=== PATIENT | female | born 1965 | race Caucasian/White ===

== ENCOUNTER → 2017-04-19 | Outpatient (CLI) | payer OTHER ==
[~2017-04-19] MED LIST: ACET325 PO; CHLO25 PO; CYAN500 PO; Calcium 600 +1 EAC1 PO; Crutch1 EACH MISC; DOCU100 PO; Desyrel50 MG; FOLI1 PO; K-Dur20 MEQ PO; METO100ER PO; METO50 PO; MIRT30 PO; Naprosyn500 MG PO; Norco 5-325 Ta1 EACH PO; OXYC5 PO; Prilosec20 MG PO; THIA100 PO; TOLT4 PO; VITAMIN C500 MG PO; VITAMIN D350000 UNIT PO
[2017-04-21 15:57] LABS: HPV Genotype 16 Not Detected (NOTDET); HPV Genotype 18 Not Detected (NOTDET)
[2017-04-27 09:29] LABS: HPV High Risk Other Not Detected (NOTDET)
== END | disposition home or self-care (01) ==
LOC: LAB 17:32
PROVIDERS: Obstetrics & Gynecology
DX: Z01.419 Encounter for gynecological examination (general) (routine) without abnormal findings (principal)
CPT/HCPCS: 87624; G0123

== ENCOUNTER 2017-07-04 08:40 | Day surgery (SDC) | payer OTHER ==
[~2017-07-04] VITALS: Ht 160 cm; Wt 55.0 kg
== END 2017-07-04 11:10 | disposition home or self-care (01) ==
LOC: ORSCSDS 08:40
PROVIDERS: Internal Medicine Gastroenterology
PROC: 0DBN8ZX Excision of Sigmoid Colon, Via Natural or Artificial Opening Endoscopic, Diagnostic (ICD-10-PCS; principal; 2017-07-04 10:00)
PROC: 0DBH8ZX Excision of Cecum, Via Natural or Artificial Opening Endoscopic, Diagnostic (ICD-10-PCS; principal; 2017-07-04 10:00)
PROC: 0DBK8ZX Excision of Ascending Colon, Via Natural or Artificial Opening Endoscopic, Diagnostic (ICD-10-PCS; principal; 2017-07-04 10:00)
DX: Z12.11 Encounter for screening for malignant neoplasm of colon (principal); D12.0 Benign neoplasm of cecum; D12.2 Benign neoplasm of ascending colon; K63.5 Polyp of colon; K64.8 Other hemorrhoids; K57.30 Diverticulosis of large intestine without perforation or abscess without bleeding; Z80.0 Family history of malignant neoplasm of digestive organs; F17.210 Nicotine dependence, cigarettes, uncomplicated; F41.8 Other specified anxiety disorders; Z79.899 Other long term (current) drug therapy
CPT/HCPCS: 88305; J0330; J1980; J2405

== ENCOUNTER → 2019-01-19 | Outpatient (CLI) | payer OTHER ==
[2019-01-20 14:01] LABS: Stool Occult Bld Immuno 1 Negative (NEGATIVE)
== END | disposition home or self-care (01) ==
LOC: LAB 10:15 → LAB SRC 10:15 → LAB SHORT 10:15
PROVIDERS: Nurse Practitioner Family
DX: Z12.11 Encounter for screening for malignant neoplasm of colon (principal)
CPT/HCPCS: G0328

== ENCOUNTER → 2019-03-30 | Outpatient (CLI) | payer OTHER ==
[2019-03-30 10:14] LABS: Alanine Aminotransfer (ALT/SGP 64 U/L (12-78); Albumin, Blood 3.5 g/dL (3.4-5.0); Albumin/Globulin Ratio 1.2 (0.8-1.8); Alk Phos 64 U/L (50-136); Anion Gap 9 mmol/L (6-16); Aspartate Aminotrans (AST/SGOT 117 U/L (12-37); Bilirubin, Total 0.3 mg/dL (0.1-1.0); Blood Urea Nitrogen 7 mg/dL (8-24); Bun/Creatinine Ratio 20.1 (12.0-20.0); CO2, Blood 27 mmol/L (21-32); Chloride, Blood 102 mmol/L (98-108); Creatinine, Blood 0.35 mg/dL (0.40-1.00); Glomerular Filtration Rate >60 (60-); Glucose, Blood 94 mg/dL (70-99); Potassium, Blood 3.9 mmol/L (3.5-5.5); Sodium, Blood 138 mmol/L (136-145); Total Protein, Blood 6.5 g/dL (6.4-8.2)
== END | disposition home or self-care (01) ==
LOC: LAB SHORT 09:44 → LAB 09:44
PROVIDERS: Internal Medicine Hematology & Oncology
DX: M81.0 Age-related osteoporosis without current pathological fracture (principal)
CPT/HCPCS: 80053

== ENCOUNTER 2020-02-22 23:35 | Inpatient (IN) | payer OTHER ==
[~2020-02-22] VITALS: Ht 160 cm; Wt 51.0 kg
[2020-02-23 00:38] LABS: BASOPHILS ABSOLUTE AUTO 0.02 K/mm3 (0.00-0.23); BASOPHILS PERCENT AUTO 0 % (0-2); EOSINOPHILS ABSOLUTE AUTO 0.01 K/mm3 (0.00-0.68); EOSINOPHILS PERCENT AUTO 0 % (0-6); IMMATURE GRAN ABSOLUTE AUTO 0.05 K/mm3 (0.00-0.10); IMMATURE GRAN PERCENT AUTO 1 % (0-1); LYMPHOCYTES ABSOLUTE AUTO 0.84 K/mm3 (0.84-5.20); LYMPHOCYTES PERCENT AUTO 11 % (21-46); MONOCYTES ABSOLUTE AUTO 0.68 K/mm3 (0.16-1.47); MONOCYTES PERCENT AUTO 9 % (4-13); Mean Corpuscular HGB 22.1 pg (26.0-34.0); Mean Corpuscular HGB Conc 29.2 g/dL (31.5-36.5); Mean Corpuscular Volume 76 fL (80-100); Mean Platelet Volume 9.6 fL (9.1-12.4); NEUTROPHILS ABSOLUTE AUTO 5.79 K/mm3 (1.96-9.15); NEUTROPHILS PERCENT AUTO 78 % (41-73); NRBC ABSOLUTE 0.05 K/mm3 (0.00-0.02); NRBC Auto 0.7 /100 WBC (0.0-0.2); Platelet Count 134 K/mm3 (150-400); RDW Coefficient Variation 22.1 % (11.7-14.2); RDW Standard Deviation 59.8 fL (35.1-46.3); Red Blood Cell Count 3.17 M/mm3 (3.80-5.20); White Blood Cell Count 7.39 K/mm3 (4.00-11.30)
[2020-02-23 00:57] LABS: Alanine Aminotransfer (ALT/SGP 56 U/L (12-78); Albumin, Blood 3.1 g/dL (3.4-5.0); Albumin/Globulin Ratio 1.1 (0.8-1.8); Alk Phos 60 U/L (50-136); Anion Gap 18 mmol/L (6-16); Aspartate Aminotrans (AST/SGOT 91 U/L (12-37); Blood Urea Nitrogen 13 mg/dL (8-24); Bun/Creatinine Ratio 28.8 (12.0-20.0); CO2, Blood 19 mmol/L (21-32); Calcium, Blood 7.8 mg/dL (8.5-10.1); Chloride, Blood 97 mmol/L (98-108); Creatinine, Blood 0.45 mg/dL (0.40-1.00); Globulin, Blood 2.9 g/dL (2.2-4.0); Glomerular Filtration Rate >60 (60-); Glucose, Blood 89 mg/dL (70-99); Sodium, Blood 134 mmol/L (136-145)
[2020-02-23 01:44] LABS: Influenza A, PCR Negative (NEGATIVE); Influenza B, PCR Negative (NEGATIVE); Resp Syncytial Virus, PCR Negative (NEGATIVE); SARS-Cov-2 (COVID-19) PCR, MMC Negative (NEGATIVE)
[2020-02-23 04:26] LABS: Hematocrit 23.7 % (33.0-51.0); Hemoglobin 6.7 g/dL (11.5-16.0); Mean Corpuscular HGB 21.7 pg (26.0-34.0); Mean Corpuscular HGB Conc 28.3 g/dL (31.5-36.5); Mean Corpuscular Volume 77 fL (80-100); Mean Platelet Volume 10.2 fL (9.1-12.4); NRBC ABSOLUTE 0.06 K/mm3 (0.00-0.02); NRBC Auto 0.7 /100 WBC (0.0-0.2); Platelet Count 136 K/mm3 (150-400); RDW Coefficient Variation 22.5 % (11.7-14.2); RDW Standard Deviation 61.7 fL (35.1-46.3); Red Blood Cell Count 3.09 M/mm3 (3.80-5.20); White Blood Cell Count 8.01 K/mm3 (4.00-11.30)
[2020-02-23 04:42] LABS: Anion Gap 18 mmol/L (6-16); Blood Urea Nitrogen 10 mg/dL (8-24); Bun/Creatinine Ratio 25.2 (12.0-20.0); CO2, Blood 17 mmol/L (21-32); Calcium, Blood 7.4 mg/dL (8.5-10.1); Chloride, Blood 100 mmol/L (98-108); Glomerular Filtration Rate >60 (60-); Glucose, Blood 80 mg/dL (70-99); Sodium, Blood 135 mmol/L (136-145)
--- NOTE | 2020-02-23 06:26 | NUR ---
SHIFT SUMMARY PT AWAKE AND ALERT, WEAK AND UNSTEADY WITH HEART RATE INCREASE TO 170'S UPON EXERTION TO BSC. PT. EDUCATED NOT TO GET UP TO BSC BUT CALL NURSE FOR ASSIST WITH BEDPAN. PT. TOLERATING BLOOD TRANSFUSION. NO ADVERSE REACTION. NO EMESIS FOR THIS SHIFT, NO DIARRHEA. NO DISTRESS AT THIS TIME.
--- NOTE | 2020-02-23 08:42 | NUR ---
AM NOTE: PATIENT A/OX3. DENIES PAIN. DENIES DIZZINESS AND LIGHTHEADEDNESS AT REST. REPORTS DIZZINESS AND LIGHTHEADEDNESS WHEN SHE GOT UP TO USE THE COMMODE DURING MEDIA SUPERVISOR. DENIES CHEST PAIN. BLOOD FINISHED INFUSING AT 0747, LAB IN TO DRAW H+H AT 0820. LUNGS CLEAR. REPORTS TENDERNESS IN MID UPPER ABDOMEN UPON PALPATION. DENIES NAUSEA. REPORTS THAT SHE DRINKS APPROX 5 NIGHTS OF THE WEEK, STATES WHEN SHE DRINKS SHE DRINKS APPROX 3 BEERS AND VODKA MIXED WITH JUICE, SHE STATES ABOUT "A SHOT AND A HALF" OF VODKA. STATES THAT SHE LIVES ALONE. DISCUSSED POC FOR SHIFT. CALL LIGHT IN REACH. BED ALARM ON. SCDS PLACED ON.
[2020-02-23 08:43] LABS: Hematocrit 26.7 % (33.0-51.0); Hemoglobin 8.2 g/dL (11.5-16.0)
--- NOTE | 2020-02-23 11:29 | NUR ---
UPDATE: PATIENT DENIES PAIN AT REST. REPORTS PAIN TO MID UPPER ABDOMEN RATED 4/10 UPON PALPATION. DENIES NAUSEA. NO VOMITING OR STOOL THIS AM. NO ACTIVE BLEEDING NOTED. HEART RATE UP TO 140'S WHEN SHE WAS USING THE BED ROUSE AND ROLLING TO HAVE LINENS CHANGED. HEART RATE TRENDED DOWN TO 80'S. SHE DID NOT FEEL LIGHTHEADED OR DIZZY WITH ACTIVITY BUT SHE WAS AFRAID TO STAND SHE FELT DIZZY AND LIGHTHEADED EARLIER WHEN SHE WAS UP TO [facility]. TOLERATED BEDBATH. CALL LIGHT IN REACH. BED ALARM ON.
--- NOTE | 2020-02-23 11:55 | NUR ---
DR. BERTRAND AT BEDSIDE. DISCUSSED POC. NO S/S BLEEDING THIS AM. SHE RECEIVED 1 UNIT PRBCS, LAST HEMOGLOBIN WAS 8.2. SHE WILL HAVE ANOTHER DRAW AT APPROX 1230. HEART RATE UP TO THE 140'S AND TOUCHING 150'S WITH ACTIVITY SUCH USING THE BEDPAN OR REPOSITIONING IN BED. PATIENT WAS DIZZY/LIGHTHEADED WHEN UP TO BSC PER REPORT. PATIENT STATES SHE DRINKS 3 BEERS AND VODKA 5 DAYS A WEEK, LAST DRINK TUESDAY. NOTIFIED HIM DR. MOYA CALLED AT 1150 AND SAID PATIENT COULD HAVE A REGULAR DIET, NPO AT MIDNIGHT, PLAN IS FOR ENDOSCOPY TOMORROW. DR. BERTRAND SAID IF 1230 H+H IS STABLE TO MAKE HER PCU STATUS.
--- NOTE | 2020-02-23 12:38 | NUR ---
DR. MOYA AT BEDSIDE. DISCUSSED POC. PATIENT HAD EPISODE OF VOMITING IN THE ED WITH STREAKS OF BLOOD. NO VOMITING OR STOOL WITH BLOOD THIS AM. DR. MOYA STATES TO GET THIS NEXT ORDERED H+H, AND THEN IF IT IS STABLE, CANCEL THE REST FOR THE DAY AND ORDER AN H+H FOR THE AM. ORDERED REGULAR DIET, NPO AT MIDNIGHT FOR ENDOSCOPY IN AM.
[2020-02-23 12:48] LABS: Hematocrit 29.7 % (33.0-51.0); Hemoglobin 8.6 g/dL (11.5-16.0)
--- NOTE | 2020-02-23 13:11 | NUR ---
CALLED DOWN TO ULTRASOUND. KATHRINE STATED SHE WOULD PREFER PATIENT TO BE NPO UNTIL AFTER PROCEDURE. WILL HOLD TRAY UNTIL AFTER PROCEDURE. TECH STATES SHE WILL BE UP FOR PATIENT IN APPROX 1 HOUR.
--- NOTE | 2020-02-23 14:51 | NUR ---
PATIENT NEEDED TO VOID. SHE WANTED TO GET UP TO THE BSC. ASSISTED HER TO SIT AT THE EDGE OF THE BED. HEART RATE UP TO THE 150'S. PATIENT REPORTED FEELING SLIGHTLY LIGHTHEADED. SBP IN THE 140'S. ASSISTED PATIENT TO LAY BACK DOWN AND HELPED HER TO USE THE BEDPAN.
--- NOTE | 2020-02-23 16:23 | NUR ---
UPDATE: PATIENT REPORTS PAIN IN MID ABD AT REST RATED 4/10, STATES THAT IT IS FROM EATING, DENIES NEED FOR MEDICATIONS AT THIS TIME. DENIES NAUSEA AT THIS TIME. NO S/S ACTIVE BLEEDING. TOLERATING PO. CIWA 3. SHE GOT A HOLD OF HER BOYFRIEND AND HE IS GOING TO TAKE CARE OF HER DOG. CALL LIGHT IN REACH. BED ALARM ON.
--- NOTE | 2020-02-23 17:25 | NUR ---
CALLED DR. BERTRAND AND NOTIFIED HIM DR. MOYA PUT IN SOME RECOMMENDATIONS FOR CARE. HE SAID HE WOULD REVIEW.
--- NOTE | 2020-02-23 18:10 | NUR ---
PATIENT TRANSFERRED TO [facility] AT 1805 VIA BED. BELONGINGS SENT WITH PATIENT. REPORT CALLED TO HUNG CHAVEZ. NO FURTHER QUESTIONS AT TIME OF TRANSFER.
--- NOTE | 2020-02-23 18:36 | NUR ---
PATIENT TRANSFERED FROM ICU VIA BED, TRANSFERED TO BED VIA SLIDER SHEET. PATIENT IS ALERT AND ORIENTED, DENIES PAIN AT THIS TIME. PATIENT ENDORSES SLIGHT NAUSEA AFTER EATING DINNER, BUT DOES NOT YET WANT ANY ANTIEMETICS. PATIENT ROLLS WELLS IN BED, REQUESTED ASSISTANCE WITH BEDPAN DUE TO DIZZINESS PER SENIOR PENSIONS ADMINISTRATOR EARLIER IN SHIFT. ASSISTED WITH BEDPAN, WCCATHY.
--- NOTE | 2020-02-23 19:00 | NUR ---
SHIFT SUMMARY: PATIENT A/OX3. REPORTED PAIN IN ABD RATED 4/10 AFTER EATING BUT DENIED NEED FOR MEDICATIONS. ZOFRAN GIVEN X1 WITH GOOD EFFECT. HAD ABD ULTRASOUND. TOLERATING REGULAR DIET. WILL BE NPO AT MIDNIGHT FOR EGD IN AM. NO S/S ACTIVE BLEEDING TODAY. HEART RATE INCREASES WITH ACTIVITY. REPORTED LIGHTHEADEDNESS WHEN SHE SAT UP AT THE EDGE OF THE BED AND HR WAS ELEVATED, ASSISTED PATIENT TO SIT BACK DOWN. HAS BEEN BEDREST DUE TO LIGHTHEADEDNESS AND ELEVATED HEART RATE WITH ACTIVITY. CIWA RANGING FROM 3-7 THIS SHIFT. TRANSFERRED TO PCU THIS EVENING.
--- NOTE | 2020-02-23 20:35 | NUR ---
ASSUMED CARE 1900 - PT AXO. IN SR. VSS. HAD 1 SMALL BLACK TAR STOOL. C/O NAUSE, MEDICATED WITH ZOFRAN. TREMORS NOTED, CIWA <5. PT DENIES EVER HAVING SEVERE ETOH W/DRAWAL. PROTONIX GTT INFUSING.
[2020-02-24 04:01] LABS: Hematocrit 26.1 % (33.0-51.0); Hemoglobin 8.1 g/dL (11.5-16.0)
--- NOTE | 2020-02-24 04:38 | NUR ---
END OF SHIFT SUMMARY NO ACUTE CHNGES THIS SHIFT. VSS. AXO. IN SR. ON RA, SPO2 >94%. 1 SMALL BLACK PASTE BM THIS SHIFT. NO EMESIS REPORTED. 1 INSTANCE OF NAUSEA TRATED WITH IV ZOFRAN. CIWAS REMAINS <5. HGB >8 THHIS AM BLOOD DRAW. PROTONIX GTT INFUSING ORDERED CONTINUOSLY. PT NPO PAST MIDNIGHT. RESTING IN ROOM. WILL CONTINUE TO MONITOR UNTIL SHIFT CHANGE.
--- NOTE | 2020-02-24 06:31 | NUR ---
TACHYCARDIA 0620 - THIS RN RECEIVES CALL FROM [employer] STATING PT'S HR 150'S. THIS RN TO ROOM. HR CONFIRMED VIA RADIAL PULSE. BP TAKEN, NORMOTENSIVE. PT SITTING AT SIDE OF BED. PT STANDS UP. OIL LEASE BROKER STATES HR 170. PT ASKED TO SIT DOWN AND LAY BACK IN BED. PT DENIES DIZZINESS. WITHIN 1 MINUTE, PT'S HR BACK INTO 90'S-100'S.
--- NOTE | 2020-02-24 10:10 | NUR ---
TRANSFERED PT TO [facility] FROM PCU VIA GURNY. History, Chart, Medications and Allergies reviewed before start of procedure. Lungs clear T/O to Auscultation. Patient confirms NPO status and agrees with scheduled surgery. Pre-Op teaching done. Pt verbalizes understanding.
--- NOTE | 2020-02-24 10:18 | NUR ---
02/24/20 1018 ARNIE CARABALLO History, Chart, Medications and Allergies reviewed before start of procedure. 3-LEAD EKG REVIEWED WITH PHYSICIAN PRIOR TO START OF PROCEDURE. O2 VIA N/C INTACT THROUGHOUT SEDATION/PROCEDURE. MONITOR INTACT WITH CONTINUOUS PULSE OXIMETRY AND INTERMITTENT BP. PATIENT DETERMINED TO BE ASA APPROPRIATE FOR PROPOFOL SEDATION PRIOR TO START OF PROCEDURE BY DR. MOYA.
--- NOTE | 2020-02-24 10:24 | NUR ---
VERBAL ORDER FROM DR. BERTRAND TO RESTART HOME DOSE OF METOPROLOL 100MG. ORDERS PLACED.
--- NOTE | 2020-02-24 11:02 | NUR ---
ARSENIO FOREMAN DC'D PER ORDERS.
--- NOTE | 2020-02-24 17:44 | NUR ---
SHIFT SUMMARY; A/A/OX4 THROUGHOUT SHIFT. ENDOSCOPY COMPLETE TODAY. SBA TO BEDSIDE COMMODE THROUGHOUT SHIFT. WEAK AND TREMORS WHEN STANDING. CIWA PER ORDER ORDERS. NO VOMITING DURING SHIFT. HEART RATE INCREASED FROM SINUS 80'S TO SINUS 120-160 WITH EXERTION. RESTARTED PO METOPROLOL TODAY, IV LOPRESSOR GIVEN IN AM PER DR. BERTRAND. HR IN AFTERNOON WITH EXERTION REACHING ONLY 120. DENIES CHEST PAIN OR SOB, REPORTS DIZZINESS DURING EPISODE. WILL CONTINUE TO TREAT AND MONITOR. SELF POSITIONS IN BED WITHOUT DIFFICULTY. SON AT BEDSIDE DURING VISITING HOURS. SON REPORTS LONG HX OF ETOH ABUSE AND REPORTS HX OF PREVIOUS WITHDRAWL SYMPTOMS. WILL CONTINUE TO MONITOR AND TREAT UNTIL CHANGE OF SHIFT.
--- NOTE | 2020-02-24 22:09 | NUR ---
ASSUMED CARE 1900 PT AXO. IN BED. IN SR, CONTINUING WOTH HR JUMPING INTO 120'S-130'S WITH ACTIVITY. VSS OTHERWISE. ON RA. DENYING N/V. DENIES HAVING ANY EMESIS TODAY. PT TOLERATING DINNER/FLUIDS. CIWA NOTED TO BE ELEVATED, 50MG LIBRIUM ADMINISTERED. WILL FOLLOW THIS.
[2020-02-25 03:48] LABS: BASOPHILS ABSOLUTE AUTO 0.02 K/mm3 (0.00-0.23); BASOPHILS PERCENT AUTO 0 % (0-2); EOSINOPHILS ABSOLUTE AUTO 0.07 K/mm3 (0.00-0.68); EOSINOPHILS PERCENT AUTO 1 % (0-6); Hematocrit 27.7 % (33.0-51.0); Hemoglobin 8.6 g/dL (11.5-16.0); IMMATURE GRAN ABSOLUTE AUTO 0.06 K/mm3 (0.00-0.10); IMMATURE GRAN PERCENT AUTO 1 % (0-1); LYMPHOCYTES ABSOLUTE AUTO 1.07 K/mm3 (0.84-5.20); LYMPHOCYTES PERCENT AUTO 16 % (21-46); MONOCYTES ABSOLUTE AUTO 0.45 K/mm3 (0.16-1.47); MONOCYTES PERCENT AUTO 7 % (4-13); Mean Corpuscular HGB 24.4 pg (26.0-34.0); Mean Corpuscular Volume 79 fL (80-100); Mean Platelet Volume 10.3 fL (9.1-12.4); NEUTROPHILS PERCENT AUTO 75 % (41-73); Platelet Count 112 K/mm3 (150-400); RDW Coefficient Variation 21.5 % (11.7-14.2); RDW Standard Deviation 60.5 fL (35.1-46.3); Red Blood Cell Count 3.53 M/mm3 (3.80-5.20); White Blood Cell Count 6.67 K/mm3 (4.00-11.30)
[2020-02-25 04:04] LABS: Alanine Aminotransfer (ALT/SGP 43 U/L (12-78); Albumin, Blood 2.6 g/dL (3.4-5.0); Alk Phos 67 U/L (50-136); Anion Gap 5 mmol/L (6-16); Aspartate Aminotrans (AST/SGOT 69 U/L (12-37); Bilirubin, Total 0.5 mg/dL (0.1-1.0); Blood Urea Nitrogen 3 mg/dL (8-24); Bun/Creatinine Ratio 9.3 (12.0-20.0); CO2, Blood 32 mmol/L (21-32); Calcium, Blood 8.5 mg/dL (8.5-10.1); Chloride, Blood 102 mmol/L (98-108); Creatinine, Blood 0.32 mg/dL (0.40-1.00); Globulin, Blood 2.7 g/dL (2.2-4.0); Glomerular Filtration Rate >60 (60-); Glucose, Blood 125 mg/dL (70-99); Potassium, Blood 2.8 mmol/L (3.5-5.5); Sodium, Blood 139 mmol/L (136-145); Total Protein, Blood 5.3 g/dL (6.4-8.2)
--- NOTE | 2020-02-25 04:24 | NUR ---
END OF SHOFT SUMMARY NO ACUTE CHANGES THIS SHIFT. VSS EXCEPT IN PERIODS OF STANDING UP WHERE HEART RATE INCREASES FROM 90 TO 130-150. REMAINS ON RA. REMAINS AXO. NONIMPULSIVE. 1 INSTANCE WHERE CIWAS WERE APPROPRIATE FOR LIBRIUM AT BEGINNING OF SHOIFT, 50MG ADMINISTERED. PT RESTING FOR MAJORITY OF SHIFT POST 2100 MEDS. NO EMESIS THIS SHIFT. NO BM THIS SHIFT. WILL CONTINUE TO MONITOR UNTIL SHIFT CHANGE.
[2020-02-25 08:08] LABS: HBSAG SCREEN Negative (Negative); HEP B CORE AB, TOT Negative (Negative); HEP C VIRUS AB <0.1 (0.0-0.9)
[2020-02-25] MEDS ORDERED: Omeprazole20 M1 PO (14:28)
[2020-02-25] MEDS ORDERED: FERSU300 PO (14:31)
[2020-02-25] MEDS ORDERED: CARAFATE1 GM/10 M1 PO (14:31)
== END 2020-02-25 15:25 | disposition home health service (06) | DRG 378 ==
LOC: ER 23:35 → ICUE 02-23 02:52 → ICUW 02-23 02:52 → PCU 02-23 02:52 → ICUE 02-23 03:37 → PCU 02-23 18:09
PROVIDERS: Family Medicine; Internal Medicine Gastroenterology; Student in an Organized Health Care Education/Training Program; ADMIT Internal Medicine
PROC: 30233N1 Transfusion of Nonautologous Red Blood Cells into Peripheral Vein, Percutaneous Approach (ICD-10-PCS; principal; 2020-02-22)
PROC: 0DD38ZX Extraction of Lower Esophagus, Via Natural or Artificial Opening Endoscopic, Diagnostic (ICD-10-PCS; 2020-02-24)
PROC: 0DD68ZX Extraction of Stomach, Via Natural or Artificial Opening Endoscopic, Diagnostic (ICD-10-PCS; 2020-02-24)
DX: K25.4 Chronic or unspecified gastric ulcer with hemorrhage (principal); D62 Acute posthemorrhagic anemia; F10.239 Alcohol dependence with withdrawal, unspecified; Z20.828 Contact with and (suspected) exposure to other viral communicable diseases; F17.210 Nicotine dependence, cigarettes, uncomplicated; I10 Essential (primary) hypertension; K21.9 Gastro-esophageal reflux disease without esophagitis; K70.10 Alcoholic hepatitis without ascites; K44.9 Diaphragmatic hernia without obstruction or gangrene; K22.2 Esophageal obstruction
CPT/HCPCS: 0241U; 36415; 36430; 71045; 76705; 80048; 80053; 83605; 83690; 84132; 85014; 85018; 85025; 85027; 86317; 86704; 86708; 86803; 86850; 86900; 86901; 86923; 87340; 88305; 88342; 96361; 96374; 97116; 97161; 99284-25; A9270; C9113; J0696; J2060; J2250; J2405; J2704; J3480; J7030; J7040; J7050; J7120; P9016

== ENCOUNTER → 2020-04-04 | Outpatient (CLI) | payer OTHER ==
[~2020-04-04] MED LIST changes: +C COMPLEX1000 M1 PO; +CALCIUM 600 +1 EAC7 PO; +CARAFATE1 GM PO; +CARAFATE1 GM/10 M1 PO; +FERSU300 PO; +KAPSPARGO SPRI100 MG PO; +Naltrexone HCl50 MG PO; +OMEPRAZOLE20 MG PO; +Omeprazole20 M1 PO; +TRAZ50 PO; +VITAMIN D325 MC3 PO
[2020-04-04 10:13] LABS: Alanine Aminotransfer (ALT/SGP 14 U/L (12-78); Albumin, Blood 3.4 g/dL (3.4-5.0); Albumin/Globulin Ratio 1.1 (0.8-1.8); Alk Phos 66 U/L (50-136); Anion Gap 7 mmol/L (6-16); Aspartate Aminotrans (AST/SGOT 11 U/L (12-37); Bilirubin, Total 0.2 mg/dL (0.1-1.0); Blood Urea Nitrogen 5 mg/dL (8-24); Bun/Creatinine Ratio 10.5 (12.0-20.0); CO2, Blood 28 mmol/L (21-32); Calcium, Blood 8.9 mg/dL (8.5-10.1); Chloride, Blood 105 mmol/L (98-108); Creatinine, Blood 0.48 mg/dL (0.40-1.00); Globulin, Blood 3.1 g/dL (2.2-4.0); Glomerular Filtration Rate >60 (60-); Glucose, Blood 107 mg/dL (70-99); Phosphorus, Blood 4.8 mg/dL (2.5-4.9); Potassium, Blood 4.4 mmol/L (3.5-5.5); Sodium, Blood 140 mmol/L (136-145); Total Protein, Blood 6.5 g/dL (6.4-8.2)
== END ==
LOC: LAB 09:47 → LAB SHORT 09:47
PROVIDERS: Internal Medicine Hematology & Oncology
DX: M81.0 Age-related osteoporosis without current pathological fracture (principal)
CPT/HCPCS: 80053; 84100

== ENCOUNTER → 2020-06-02 | Outpatient (CLI) | payer OTHER ==
[2020-06-03 16:10] LABS: HPV 16 Negative (Negative); HPV 18 Negative (Negative); HPV OTHER HR TYPES Negative (Negative)
== END | disposition home or self-care (01) ==
LOC: LAB SHORT 16:30 → LAB 16:30
PROVIDERS: Obstetrics & Gynecology
DX: Z01.419 Encounter for gynecological examination (general) (routine) without abnormal findings (principal)
CPT/HCPCS: 87624; G0123

== ENCOUNTER 2020-07-07 07:09 | Day surgery (SDC) | payer OTHER ==
[~2020-07-07] VITALS: Ht 160 cm; Wt 53.5 kg
== END 2020-07-07 09:45 | disposition home or self-care (01) ==
LOC: ORSCSDS 07:09
PROVIDERS: Internal Medicine Gastroenterology
PROC: 0DBP8ZX Excision of Rectum, Via Natural or Artificial Opening Endoscopic, Diagnostic (ICD-10-PCS; principal; 2020-07-07 08:30)
PROC: 0DB68ZX Excision of Stomach, Via Natural or Artificial Opening Endoscopic, Diagnostic (ICD-10-PCS; principal; 2020-07-07 08:30)
PROC: 0DBL8ZX Excision of Transverse Colon, Via Natural or Artificial Opening Endoscopic, Diagnostic (ICD-10-PCS; principal; 2020-07-07 08:30)
DX: K22.11 Ulcer of esophagus with bleeding (principal); K29.50 Unspecified chronic gastritis without bleeding; Z12.11 Encounter for screening for malignant neoplasm of colon; K63.5 Polyp of colon; K62.1 Rectal polyp; K64.8 Other hemorrhoids; K57.30 Diverticulosis of large intestine without perforation or abscess without bleeding; Z86.010 Personal history of colon polyps; K70.10 Alcoholic hepatitis without ascites; D50.9 Iron deficiency anemia, unspecified; F17.210 Nicotine dependence, cigarettes, uncomplicated
CPT/HCPCS: 88305; 88342; J2250; J2405; J2704; J7120

== ENCOUNTER 2021-02-18 20:42 | Emergency (ER) | payer OTHER ==
[~2021-02-18] VITALS: Ht 160 cm; Wt 52.2 kg
[2021-02-18 21:39] LABS: BASOPHILS ABSOLUTE AUTO 0.08 K/mm3 (0.00-0.23); BASOPHILS PERCENT AUTO 2 % (0-2); EOSINOPHILS ABSOLUTE AUTO 0.01 K/mm3 (0.00-0.68); EOSINOPHILS PERCENT AUTO 0 % (0-6); Hemoglobin 15.3 g/dL (11.5-16.0); IMMATURE GRAN ABSOLUTE AUTO 0.03 K/mm3 (0.00-0.10); IMMATURE GRAN PERCENT AUTO 1 % (0-1); LYMPHOCYTES ABSOLUTE AUTO 1.19 K/mm3 (0.84-5.20); LYMPHOCYTES PERCENT AUTO 24 % (21-46); MONOCYTES PERCENT AUTO 6 % (4-13); Mean Corpuscular HGB 33.7 pg (26.0-34.0); Mean Corpuscular Volume 99 fL (80-100); Mean Platelet Volume 10.3 fL (9.1-12.4); NEUTROPHILS ABSOLUTE AUTO 3.37 K/mm3 (1.96-9.15); NEUTROPHILS PERCENT AUTO 68 % (41-73); Platelet Count 80 K/mm3 (150-400); RDW Coefficient Variation 12.1 % (11.7-14.2); RDW Standard Deviation 44.1 fL (35.1-46.3); Red Blood Cell Count 4.54 M/mm3 (3.80-5.20); White Blood Cell Count 4.98 K/mm3 (4.00-11.30)
[2021-02-18 22:23] LABS: Troponin I <0.015 ng/mL (0.000-0.040)
[2021-02-18 22:35] LABS: Influenza A, PCR NEGATIVE (NEGATIVE); Influenza B, PCR NEGATIVE (NEGATIVE); Resp Syncytial Virus, PCR NEGATIVE (NEGATIVE); SARS-Cov-2 (COVID-19) PCR, MMC NEGATIVE (NEGATIVE)
[2021-02-18 22:38] LABS: Alanine Aminotransfer (ALT/SGP 94 U/L (12-78); Albumin, Blood 3.8 g/dL (3.4-5.0); Albumin/Globulin Ratio 1.1 (0.8-1.8); Alk Phos 85 U/L (50-136); Anion Gap 23 mmol/L (6-16); Aspartate Aminotrans (AST/SGOT 317 U/L (12-37); Bilirubin, Total 0.8 mg/dL (0.1-1.0); Blood Urea Nitrogen 12 mg/dL (8-24); Bun/Creatinine Ratio 31.7 (12.0-20.0); CO2, Blood 18 mmol/L (21-32); Calcium, Blood 7.8 mg/dL (8.5-10.1); Chloride, Blood 99 mmol/L (98-108); Creatinine, Blood 0.38 mg/dL (0.40-1.00); Globulin, Blood 3.5 g/dL (2.2-4.0); Glomerular Filtration Rate >60 (60-); Glucose, Blood 46 mg/dL (70-99); Potassium, Blood 4.2 mmol/L (3.5-5.5); Sodium, Blood 140 mmol/L (136-145); Total Protein, Blood 7.3 g/dL (6.4-8.2)
[2021-02-18 22:57] LABS: Acetaminophen, Random <2.0 ug/mL (10.0-30.0); Salicylate 4.3 mg/dL (2.8-20.0)
[2021-02-18 23:36] LABS: Ethanol (Alcohol), Blood, Med 404 mg/dL
[2021-02-19 00:13] LABS: Osmolality, Serum 395 mos/KG (275-300)
== END 2021-02-19 00:50 | disposition home or self-care (01) ==
LOC: ER 20:42
PROVIDERS: Physician Assistant
DX: F10.129 Alcohol abuse with intoxication, unspecified (principal); Y90.8 Blood alcohol level of 240 mg/100 ml or more; E86.0 Dehydration; R00.2 Palpitations; E16.2 Hypoglycemia, unspecified; E87.2 Acidosis; D69.6 Thrombocytopenia, unspecified; I10 Essential (primary) hypertension; K21.9 Gastro-esophageal reflux disease without esophagitis; Z79.899 Other long term (current) drug therapy
CPT/HCPCS: 0241U; 36415; 71045; 80053; 83605; 83880; 83930; 84484; 85025; 93005; 93010; 96374; 99285-25; A9270; G0480; J7030

== ENCOUNTER 2021-02-22 06:57 | Emergency (ER) | payer OTHER ==
[~2021-02-22] VITALS: Ht 160 cm; Wt 51.7 kg
[2021-02-22 08:07] LABS: Source, Urine Clean Catch
[2021-02-22 08:17] LABS: BASOPHILS ABSOLUTE AUTO 0.03 K/mm3 (0.00-0.23); BASOPHILS PERCENT AUTO 1 % (0-2); EOSINOPHILS ABSOLUTE AUTO 0.04 K/mm3 (0.00-0.68); EOSINOPHILS PERCENT AUTO 1 % (0-6); Hematocrit 39.4 % (33.0-51.0); Hemoglobin 13.7 g/dL (11.5-16.0); IMMATURE GRAN ABSOLUTE AUTO 0.02 K/mm3 (0.00-0.10); IMMATURE GRAN PERCENT AUTO 0 % (0-1); LYMPHOCYTES ABSOLUTE AUTO 0.77 K/mm3 (0.84-5.20); LYMPHOCYTES PERCENT AUTO 17 % (21-46); MONOCYTES ABSOLUTE AUTO 0.45 K/mm3 (0.16-1.47); MONOCYTES PERCENT AUTO 10 % (4-13); Mean Corpuscular HGB 33.5 pg (26.0-34.0); Mean Corpuscular HGB Conc 34.8 g/dL (31.5-36.5); Mean Corpuscular Volume 96 fL (80-100); Mean Platelet Volume 10.9 fL (9.1-12.4); NEUTROPHILS ABSOLUTE AUTO 3.32 K/mm3 (1.96-9.15); NEUTROPHILS PERCENT AUTO 72 % (41-73); RDW Coefficient Variation 11.5 % (11.7-14.2); RDW Standard Deviation 40.9 fL (35.1-46.3); Red Blood Cell Count 4.09 M/mm3 (3.80-5.20); White Blood Cell Count 4.63 K/mm3 (4.00-11.30)
[2021-02-22 08:20] LABS: Appearance, Urine Clear (Clear); Bilirubin, Urine Neg (Neg); Blood, Urine Neg (Neg); Color, Urine Yellow (P-Yellow); Glucose Qualitative, Urine Neg (Neg); Ketones, Urine Neg (Neg); Leukocyte Esterase, Urine 1+ (Neg); Nitrite, Urine Neg (Neg); Protein, Urine 2+ (Neg); Urobilinogen, Urine 2+ (Normal)
[2021-02-22 08:24] LABS: Platelet Count 60 K/mm3 (150-400)
[2021-02-22 08:43] LABS: Alanine Aminotransfer (ALT/SGP 53 U/L (12-78); Albumin, Blood 3.8 g/dL (3.4-5.0); Albumin/Globulin Ratio 1.1 (0.8-1.8); Alk Phos 70 U/L (50-136); Anion Gap 11 mmol/L (6-16); Aspartate Aminotrans (AST/SGOT 79 U/L (12-37); Bilirubin, Total 1.3 mg/dL (0.1-1.0); Blood Urea Nitrogen 3 mg/dL (8-24); Bun/Creatinine Ratio 6.7 (12.0-20.0); CO2, Blood 29 mmol/L (21-32); Calcium, Blood 9.2 mg/dL (8.5-10.1); Chloride, Blood 96 mmol/L (98-108); Creatinine, Blood 0.45 mg/dL (0.40-1.00); Globulin, Blood 3.4 g/dL (2.2-4.0); Glomerular Filtration Rate >60 (60-); Glucose, Blood 116 mg/dL (70-99); Potassium, Blood 3.4 mmol/L (3.5-5.5); Sodium, Blood 136 mmol/L (136-145); Total Protein, Blood 7.2 g/dL (6.4-8.2); Troponin I <0.015 ng/mL (0.000-0.040)
[2021-02-22 08:51] LABS: Granular Casts Rare /lpf (0)
[2021-02-22 08:52] LABS: White Blood Cells, Urine 0-2 /hpf (0-5)
[2021-02-22 08:53] LABS: Bacteria Few /hpf; Mucus Light (0-Heavy); Red Blood Cells, Urine Rare /hpf (0-2); Squamous Epithelial Cells Few /hpf (Few)
== END 2021-02-22 11:59 | disposition home or self-care (01) ==
LOC: ER 06:57
PROVIDERS: Emergency Medicine
DX: E83.42 Hypomagnesemia (principal); I10 Essential (primary) hypertension; K21.9 Gastro-esophageal reflux disease without esophagitis; F17.210 Nicotine dependence, cigarettes, uncomplicated
CPT/HCPCS: 36415; 80053; 81001; 82272; 83735; 84484; 85025; 87086; 93005; 93010; 96365; 96366; 99285-25; G0480; J3475; J7120

== ENCOUNTER → 2022-05-31 | Outpatient (CLI) | payer OTHER ==
[2022-05-31 15:15] LABS: Sodium, Urine, Random 29 mmol/L (20-110)
[2022-05-31 18:03] LABS: Osmolality, Urine 146 mos/kg (15-1400)
== END | disposition home or self-care (01) ==
LOC: LAB 13:16 → LAB SHORT 13:16
PROVIDERS: Family Medicine
DX: N39.41 Urge incontinence (principal); D50.0 Iron deficiency anemia secondary to blood loss (chronic); E83.42 Hypomagnesemia
CPT/HCPCS: 83935; 84300

== ENCOUNTER → 2023-09-08 | Outpatient (CLI) | payer OTHER ==
[2023-09-08 18:37] LABS: Candida Group, PCR NOT DETECTED (NOT DETECT)
[2023-09-08 20:06] LABS: Bacterial Vaginosis PCR Positive (NEGATIVE); Candida glabrata-krusei, PCR DETECTED (NOT DETECT)
== END | disposition home or self-care (01) ==
LOC: LAB SHORT 15:46 → LAB 15:46
PROVIDERS: Obstetrics & Gynecology
DX: N76.0 Acute vaginitis (principal)
CPT/HCPCS: 87481; 87661; 87801

== ENCOUNTER → 2023-10-12 | Outpatient (CLI) | payer OTHER ==
[2023-10-12 19:58] LABS: Bacterial Vaginosis PCR Negative (NEGATIVE); Candida Group, PCR NOT DETECTED (NOT DETECT); Candida glabrata-krusei, PCR NOT DETECTED (NOT DETECT)
[2023-10-14 21:38] LABS: APTIMA MEDIA TYPE Unisex Swab; C. TRACHOMATIS BY TMA Negative (Negative); N. GONORRHOEAE BY TMA Negative (Negative); SPECIMEN SOURCE Vaginal
== END | disposition home or self-care (01) ==
LOC: LAB 14:47 → LAB SHORT 14:47
PROVIDERS: Obstetrics & Gynecology
DX: Z11.3 Encounter for screening for infections with a predominantly sexual mode of transmission (principal); N89.8 Other specified noninflammatory disorders of vagina
CPT/HCPCS: 87481; 87661; 87801

== ENCOUNTER → 2024-04-11 | Outpatient (CLI) | payer OTHER ==
[2024-04-11 16:49] LABS: Bacterial Vaginosis PCR Negative (NEGATIVE); Candida Group, PCR NOT DETECTED (NOT DETECT); Candida glabrata-krusei, PCR NOT DETECTED (NOT DETECT)
[2024-04-17 08:39] LABS: HPV HIGH RISK BY TMA Not Detected; HPV SOURCE Cervical/Vag
== END | disposition home or self-care (01) ==
LOC: LAB SHORT 11:16 → LAB 11:16
PROVIDERS: Obstetrics & Gynecology
DX: Z01.419 Encounter for gynecological examination (general) (routine) without abnormal findings (principal); N89.8 Other specified noninflammatory disorders of vagina
CPT/HCPCS: 81515; 87624; G0123

== ENCOUNTER 2024-11-11 11:24 | Inpatient (IN) | payer OTHER ==
[~2024-11-11] VITALS: Ht 160 cm; Wt 64.0 kg
[2024-11-11 12:03] LABS: BASOPHILS ABSOLUTE AUTO 0.05 K/mm3 (0.00-0.23); BASOPHILS PERCENT AUTO 1 % (0-2); EOSINOPHILS ABSOLUTE AUTO 0.09 K/mm3 (0.00-0.68); EOSINOPHILS PERCENT AUTO 1 % (0-6); Hematocrit 30.7 % (33.0-51.0); Hemoglobin 10.4 g/dL (11.5-16.0); IMMATURE GRAN ABSOLUTE AUTO 0.02 K/mm3 (0.00-0.10); IMMATURE GRAN PERCENT AUTO 0 % (0-1); LYMPHOCYTES ABSOLUTE AUTO 2.48 K/mm3 (0.84-5.20); LYMPHOCYTES PERCENT AUTO 28 % (21-46); MONOCYTES ABSOLUTE AUTO 0.59 K/mm3 (0.16-1.47); MONOCYTES PERCENT AUTO 7 % (4-13); Mean Corpuscular HGB Conc 33.9 g/dL (31.5-36.5); Mean Corpuscular Volume 91 fL (80-100); NEUTROPHILS ABSOLUTE AUTO 5.79 K/mm3 (1.96-9.15); NEUTROPHILS PERCENT AUTO 64 % (41-73); NRBC ABSOLUTE 0.00 K/mm3 (0.00-0.02); NRBC Auto 0.0 /100 WBC (0.0-0.2); Platelet Count 241 K/mm3 (150-400); RDW Coefficient Variation 12.2 % (11.7-14.2); RDW Standard Deviation 41.0 fL (35.1-46.3)
[2024-11-11] MEDS ORDERED: Ondansetron HCl 2 MG / ML 2ML Vial IV ONE (12:15)
[2024-11-11] MEDS ORDERED: Morphine Sulfate 4 MG/1 ML Injection IV ONE ×2 (12:15→15:55)
[2024-11-11 12:18] LABS: Alanine Aminotransfer (ALT/SGP 21.0 U/L (12-78); Albumin, Blood 3.4 g/dL (3.4-5.0); Albumin/Globulin Ratio 1.3 (0.8-1.8); Anion Gap 10.0 mmol/L (3-11); Aspartate Aminotrans (AST/SGOT 17.0 U/L (12-37); Bilirubin, Total 0.2 mg/dL (0.1-1.0); Blood Urea Nitrogen 12.0 mg/dL (8-24); CO2, Blood 23.0 mmol/L (21-32); Calcium, Blood 8.0 mg/dL (8.5-10.1); Chloride, Blood 105.0 mmol/L (98-108); Creatinine, Blood 0.68 mg/dL (0.40-1.00); Globulin, Blood 2.7 g/dL (2.2-4.0); Glucose, Blood 87.0 mg/dL (70-99); Potassium, Blood 3.8 mmol/L (3.5-5.5); Sodium, Blood 134.0 mmol/L (136-145); Total Protein, Blood 6.1 g/dL (6.4-8.2)
[2024-11-11] MEDS ORDERED: HYDROmorphone HCl/Pf 1MG SYR IV ONE (13:15)
[2024-11-11] MEDS ORDERED: Magnesium Hydroxide Conc 10 ML UDC PO PRN (14:05)
[2024-11-11] MEDS ORDERED: Ondansetron HCl 2 MG / ML 2ML Vial IV PRN (14:05)
[2024-11-11] MEDS ORDERED: HYDROmorphone HCl/Pf 1MG SYR IV PRN (14:35)
[2024-11-11] MEDS ORDERED: NS 1,000 ML IV SCH ×2 (14:45→15:00)
[2024-11-11 15:30] LABS: Ferritin, Serum 43.0 ng/mL (8-252); Total Iron Binding Capacity 293.0 ug/dL (250-450)
[2024-11-11 16:47] VITALS: BP 132/71
[2024-11-11] MEDS ORDERED: ABILIFY MYCITE5 M2 PO (17:12)
[2024-11-11] MEDS ORDERED: PARO10 PO (17:12)
--- NOTE | 2024-11-11 17:56 | NUR ---
SUMMARY PT TO UNIT FROM ER. AXO4. VSS. ON TELE - SR. R LEG SPLINTED - WIGGLES TOES, CAP REFILL INTACT WELL SENSATION. PUREWICK IN PLACE DUE TO IMMOBILITY WITH SPLINT/NWB STATUS. PTTO BE NPO TONIGHT. TOLERATING PO INTAKE AT THIS TIME. ADMISSION COMPLETED. PT EATING DINNER TRAY NOW. CALL LIGHT WITHIN REACH.
[2024-11-11 19:35] VITALS: BP 107/56
[2024-11-11 23:52] VITALS: BP 122/62
[2024-11-12] VITALS (13 sets, daily range): BP systolic 116–161; BP diastolic 60–86
[2024-11-12] MEDS ORDERED: NS 1,000 ML IV SCH (04:30)
--- NOTE | 2024-11-12 05:51 | NUR ---
NOC SUMMARY- PT PAIN MANAGED WELL. PT SPLINT REMAINS INTACT. GOOD SENSATION AND MOVEMENT. CAP REFILL <3 SECS. PT HAS BEEN NPO SINCE MN. PT VOIDING VIA PUREWICK. PT HAS BEEN ABLE TO REST COMFORTABLY. CALL LIGHT IN REACH.
[2024-11-12 07:15] LABS: BASOPHILS ABSOLUTE AUTO 0.03 K/mm3 (0.00-0.23); BASOPHILS PERCENT AUTO 0 % (0-2); EOSINOPHILS ABSOLUTE AUTO 0.06 K/mm3 (0.00-0.68); EOSINOPHILS PERCENT AUTO 1 % (0-6); Hematocrit 28.7 % (33.0-51.0); Hemoglobin 9.6 g/dL (11.5-16.0); IMMATURE GRAN ABSOLUTE AUTO 0.03 K/mm3 (0.00-0.10); IMMATURE GRAN PERCENT AUTO 0 % (0-1); LYMPHOCYTES ABSOLUTE AUTO 1.57 K/mm3 (0.84-5.20); LYMPHOCYTES PERCENT AUTO 16 % (21-46); MONOCYTES ABSOLUTE AUTO 0.99 K/mm3 (0.16-1.47); MONOCYTES PERCENT AUTO 10 % (4-13); Mean Corpuscular HGB Conc 33.4 g/dL (31.5-36.5); Mean Corpuscular Volume 93 fL (80-100); NEUTROPHILS ABSOLUTE AUTO 7.38 K/mm3 (1.96-9.15); NEUTROPHILS PERCENT AUTO 73 % (41-73); NRBC ABSOLUTE 0.00 K/mm3 (0.00-0.02); NRBC Auto 0.0 /100 WBC (0.0-0.2); Platelet Count 215 K/mm3 (150-400); RDW Coefficient Variation 12.3 % (11.7-14.2); RDW Standard Deviation 41.6 fL (35.1-46.3)
[2024-11-12] MEDS ORDERED: Metoclopramide HCl 5MG / ML 2ML Vial IV PRN (07:35)
[2024-11-12] MEDS ORDERED: HYDROmorphone HCl/Pf 1MG SYR IV PRN (07:35)
[2024-11-12] MEDS ORDERED: FentaNYL Citrate 50 MCG/ML 2 ML Injection IV PRN ×2 (07:35)
[2024-11-12 07:36] LABS: Anion Gap 7.0 mmol/L (3-11); Blood Urea Nitrogen 7.0 mg/dL (8-24); CO2, Blood 27.0 mmol/L (21-32); Calcium, Blood 7.9 mg/dL (8.5-10.1); Chloride, Blood 106.0 mmol/L (98-108); Creatinine, Blood 0.63 mg/dL (0.40-1.00); Glucose, Blood 106.0 mg/dL (70-99); Potassium, Blood 3.7 mmol/L (3.5-5.5); Sodium, Blood 136.0 mmol/L (136-145)
[2024-11-12] MEDS ORDERED: Ondansetron HCl 2 MG / ML 2ML Vial IV PRN (07:40)
[2024-11-12] MEDS ORDERED: Morphine Sulfate 4 MG/1 ML Injection IV PRN (07:40)
[2024-11-12] MEDS ORDERED: Folic Acid 1 MG TAB PO SCH (09:00)
[2024-11-12] MEDS ORDERED: Calcium/Vit D 600 mg-400 Unit Tab PO SCH (09:00)
[2024-11-12] MEDS ORDERED: Cholecalciferol 1000 Unit Tablet (=25MCG) PO SCH (09:00)
--- NOTE | 2024-11-12 17:26 | NUR ---
PT TO PREOP VIA BED
--- NOTE | 2024-11-12 17:50 | NUR ---
PT BROUGHT TO PACU VIA BED FROM RM 221 FOR PREOP CARE AT 1735. ALERT & PLEASANT. AFEBRILE/VSS. LR AT TKO. SURIGICAL PACK COMPLETE. SURGICAL HAT/PAS SLEEVE TO LLE/BP CUFF PLACED. WARM BLANKET OFFERED. RESTING QUIETLY. NO COMPLAINTS AT THIS TIME. WILL CONTINUE TO MONITOR VS DURING MY PREOP CARE.
[2024-11-12] MEDS ORDERED: Bupivacaine 0.5% W/EPI 1:200000 SDV 30 ML Vial ONE (17:56)
[2024-11-12] MEDS ORDERED: CeFAZolin Sodium 2,000 MG in NS 100 ML IV SCH (18:10)
--- NOTE | 2024-11-12 18:38 | NUR ---
PT TO OR 3 VIA BED AT 1835 IN STABLE CONDITION.
[2024-11-12] MEDS ORDERED: Rocuronium Bromide 10 MG/ML 5ML Injection IV ONE (18:42)
[2024-11-12] MEDS ORDERED: HYDROmorphone HCl/Pf 1MG SYR ONE (18:45)
[2024-11-12] MEDS ORDERED: Sugammadex Sodium 200 MG/2ML SDV (100 MG/ML) ONE ×2 (19:33→19:38)
[2024-11-12] MEDS ORDERED: Ondansetron HCl 2 MG / ML 2ML Vial ONE (19:33)
--- NOTE | 2024-11-12 20:20 | NUR ---
ARRIVAL TO UNIT PT ARRIVED TO UNIT FROM PACU VIA BED. FAMILY c PT. A&O x4. VSS, O2 SAT >94% ON 2L OA VIA NC, TELE IN USE - NSR 70s. PT REPORTS MIN NAUSEA. DEWAYNE WRAP c EXTERNAL FIXATION TO RLE. MIN SANG DRAINAGE AT LOWER 2 FIXATION SITES. PT ENDORSES PAIN TO RLE. BRISK CAP REFILL TO BILAT LEs. ORIENTED TO ROOM, ALL LIGHT IN REACH.
[2024-11-12] MEDS ORDERED: NS 250 ML IV PRN (21:35)
[2024-11-13 00:02] VITALS: BP 139/72
[2024-11-13] MEDS ORDERED: CeFAZolin Sodium 2,000 MG in NS 100 ML IV SCH ×2 (03:00→20:00)
[2024-11-13 04:50] LABS: BASOPHILS ABSOLUTE AUTO 0.05 K/mm3 (0.00-0.23); BASOPHILS PERCENT AUTO 0 % (0-2); EOSINOPHILS ABSOLUTE AUTO 0.04 K/mm3 (0.00-0.68); EOSINOPHILS PERCENT AUTO 0 % (0-6); Hematocrit 28.0 % (33.0-51.0); Hemoglobin 9.6 g/dL (11.5-16.0); IMMATURE GRAN ABSOLUTE AUTO 0.08 K/mm3 (0.00-0.10); IMMATURE GRAN PERCENT AUTO 1 % (0-1); LYMPHOCYTES ABSOLUTE AUTO 2.32 K/mm3 (0.84-5.20); LYMPHOCYTES PERCENT AUTO 15 % (21-46); MONOCYTES ABSOLUTE AUTO 1.59 K/mm3 (0.16-1.47); MONOCYTES PERCENT AUTO 10 % (4-13); Mean Corpuscular HGB Conc 34.3 g/dL (31.5-36.5); Mean Corpuscular Volume 92 fL (80-100); NEUTROPHILS ABSOLUTE AUTO 11.83 K/mm3 (1.96-9.15); NEUTROPHILS PERCENT AUTO 74 % (41-73); NRBC ABSOLUTE 0.00 K/mm3 (0.00-0.02); NRBC Auto 0.0 /100 WBC (0.0-0.2); Platelet Count 179 K/mm3 (150-400); RDW Coefficient Variation 11.9 % (11.7-14.2); RDW Standard Deviation 40.2 fL (35.1-46.3)
[2024-11-13 05:09] LABS: Anion Gap 9.0 mmol/L (3-11); Blood Urea Nitrogen 4.0 mg/dL (8-24); CO2, Blood 27.0 mmol/L (21-32); Calcium, Blood 7.9 mg/dL (8.5-10.1); Chloride, Blood 101.0 mmol/L (98-108); Creatinine, Blood 0.53 mg/dL (0.40-1.00); Glucose, Blood 106.0 mg/dL (70-99); Potassium, Blood 3.5 mmol/L (3.5-5.5); Sodium, Blood 133.0 mmol/L (136-145)
--- NOTE | 2024-11-13 05:32 | NUR ---
SHIFT SUMMARY POD 1 R TIB EXTERNAL FIXATION PLACEMENT. VSS, CONT BIOX, TELE - SINUS 70s. TOLERATING MIN PO INTAKE, NO NAUSEA REPORTED SINCE ARRIVAL TO UNIT. VOIDING, PUREWICK IN USE. NO AMB OVERNIGHT. DEWAYNE WRAP TO RLE c MOD SANG DRAINAGE AROUND LOWER INSERTION SITE, OTHERWISE C/D/I. PT REPORTS PAIN TOLERABLE c INTERMITTENT MUSCLE SPASMS, MEDICATED PER EMAR. CALL LIGHT IN REACH, BED IN LOWEST POSITION, WILL REPORT TO DAY RN.
[2024-11-13 06:01] VITALS: BP 144/76
[2024-11-13 07:18] VITALS: BP 158/65
[2024-11-13 14:28] VITALS: BP 127/63
[2024-11-13 19:33] VITALS: BP 127/65
[2024-11-13 23:59] VITALS: BP 138/68
--- NOTE | 2024-11-14 00:41 | NUR ---
WOUND CARE RLE EXTREMITY DRESSING REINFORCED. ABD PAD x2 c ADDITIONAL DEWAYNE WRAP PLACED LAST NIGHT BY THIS RN, REMOVED. ABD PADS COMPLETELY SATURATED. ORIGINAL SURGICAL DRESSING REMAINS UNCHANGED, LARGE AMOUNTS OF SANGUINEOUS DRAINAGE VISUALIZED UNDER DEWAYNE WRAP AT LOWER EXTERNAL FIXATION SITE. NEW ABD PAD x2 & DEWAYNE WRAP PLACED OVER ORIGINAL DRESSING. WOUND CARE ORDERS REQUIRED FROM ORTHO PROVIDER. POD 2 TIB EXTERNAL FIXATION PLACEMENT.
[2024-11-14 04:41] LABS: BASOPHILS ABSOLUTE AUTO 0.03 K/mm3 (0.00-0.23); BASOPHILS PERCENT AUTO 0 % (0-2); EOSINOPHILS ABSOLUTE AUTO 0.07 K/mm3 (0.00-0.68); EOSINOPHILS PERCENT AUTO 1 % (0-6); Hematocrit 25.0 % (33.0-51.0); Hemoglobin 8.4 g/dL (11.5-16.0); IMMATURE GRAN ABSOLUTE AUTO 0.05 K/mm3 (0.00-0.10); IMMATURE GRAN PERCENT AUTO 0 % (0-1); LYMPHOCYTES ABSOLUTE AUTO 1.78 K/mm3 (0.84-5.20); LYMPHOCYTES PERCENT AUTO 16 % (21-46); MONOCYTES ABSOLUTE AUTO 1.30 K/mm3 (0.16-1.47); MONOCYTES PERCENT AUTO 12 % (4-13); Mean Corpuscular HGB Conc 33.6 g/dL (31.5-36.5); Mean Corpuscular Volume 91 fL (80-100); NEUTROPHILS ABSOLUTE AUTO 8.11 K/mm3 (1.96-9.15); NEUTROPHILS PERCENT AUTO 72 % (41-73); NRBC ABSOLUTE 0.00 K/mm3 (0.00-0.02); NRBC Auto 0.0 /100 WBC (0.0-0.2); Platelet Count 198 K/mm3 (150-400); RDW Coefficient Variation 11.8 % (11.7-14.2); RDW Standard Deviation 39.0 fL (35.1-46.3)
[2024-11-14 05:11] LABS: Anion Gap 9.0 mmol/L (3-11); Blood Urea Nitrogen 4.0 mg/dL (8-24); CO2, Blood 30.0 mmol/L (21-32); Calcium, Blood 8.2 mg/dL (8.5-10.1); Chloride, Blood 100.0 mmol/L (98-108); Creatinine, Blood 0.58 mg/dL (0.40-1.00); Glucose, Blood 113.0 mg/dL (70-99); Potassium, Blood 3.8 mmol/L (3.5-5.5); Sodium, Blood 135.0 mmol/L (136-145)
--- NOTE | 2024-11-14 06:33 | NUR ---
SHIFT SUMMARY POD 2 R TIB EXTERNAL FIXATION PLACEMENT. VSS, CONT BIOX, TELE - SINUS 70s. TOLERATING PO INTAKE. VOIDING, PUREWICK IN USE. NO AMB OVERNIGHT. DEWAYNE WRAP TO RLE c HEAVY SANG DRAINAGE AROUND LOWER INSERTION SITE, SEE PREVIOUS WOUND CARE NOTE. PT REPORTS PAIN TOLERABLE c INTERMITTENT MUSCLE SPASMS, MEDICATED PER EMAR. CALL LIGHT IN REACH, BED IN LOWEST POSITION, WILL REPORT TO DAY RN.
[2024-11-14 07:42] VITALS: BP 147/72
--- NOTE | 2024-11-14 14:09 | NUR ---
DR SHERIDAN IN TO SEE PATIENT, DRESSING CHANGED, CLEANED PIN SITES WITH PEROXIDE AND SALINE WASH. XEROFORM TO PIN SITES, GAUZE AROUND XEROFORM AND ABD PAD TO PIN SITES. DEWAYNE WRAP AROUND R FOOT UP THROUGH THIGH. CLEAN PIN SITES DAILY.
[2024-11-14 14:11] VITALS: BP 122/56
[2024-11-14 15:16] LABS: Hematocrit 23.8 % (33.0-51.0); Hemoglobin 8.3 g/dL (11.5-16.0)
--- NOTE | 2024-11-14 17:06 | NUR ---
SHIFT SUMMARY PATIENT AOX4, POD2 RIGHT EXT FIXATION. PIN SITES CLEANED AND DRESSING CHANGED THIS SHIFT PER ORDER. PATIENT MEDICATED FOR PAIN PER EMAR. IV SITE LOST AND UNABLE TO GET NEW IV AFTER 2 ATTEMPTS. WILL TRY ULTRA SOUND. PATIENT IS ON TELE, REMAINS IN NSR. CALL TO DC TELE. PATIENT IS BEDREST, WORKS WITH PT ON BED EXERCISES. PATIENT IS AWAITING TRANSFER FOR HIGHER LEVEL OF CARE, TO SURGICALLY FIX RLE. CALLS PLACED TO PIECE MAKER. AWAITING OPEN BED. DR. SHERIDAN IN TO SEE PATIENT TODAY. VSS. CALL LIGHT IN REACH.
[2024-11-14 19:49] VITALS: BP 126/71
[2024-11-15 05:08] VITALS: BP 130/69
--- NOTE | 2024-11-15 05:17 | NUR ---
SHIFT SUMMARY RAJAN WAS ALERT AND FULLY ORIENTED ON ASSESSMENT. PT PAIN WELL MANAGED AT THIS TIME. SENSATION / CIRCULATION TO BLE'S INTACT. PT DENIES CHEST PAIN, SOB, AND NAUSEA. SOME SS DRAINAGE NOTED TO SURGICAL PIN SITES, AREA OF DRAINAGE DOES NOT APPEAR TO BE GROWING MUCH. NO ACUTE EVENTS NOTED NO CHANGES TO PT CONDITION. PT TELE DC'D.
[2024-11-15 07:02] VITALS: BP 127/65
[2024-11-15 14:50] VITALS: BP 124/68
[2024-11-15] MEDS ORDERED: Enoxaparin 40 MG/0.4 ML SYR SC SCH (17:00)
--- NOTE | 2024-11-15 17:03 | NUR ---
SUMMARY NO ACUTE CHANGES THIS SHIFT. VSS. EXTERNAL FIXATION DEVICE REMAINS TO R LEG, DRESSING CHANGED AT BEGINNING OF SHIFT DUE TO BLEEDING THROUGH, SINCE DRESSING CHANGE, REMAINS CDI. SENATION REMAINS TO LEG, PAIN MEDS PER EMAR PER PT REQUEST ADMINISTERED. PT MADE AWARE OF PL TO DC TO SNF AND THEN FOLOOW UP WITH TRAUMA SURGEON FROM THERE. CARE MANAGEMENT WORKING ON THIS WITH PT. PT FLAT IN ROOM BUT CONVERSIVE. COMPLETING PHYSICAL THERAPY EXCERCISES. VOSING WELL. AND OTHERWISE RESTING OFF AND ON ROOM AWATING SNF PLACEMENT.
[2024-11-15 19:40] VITALS: BP 121/65
--- NOTE | 2024-11-16 04:10 | NUR ---
SHIFT VENUS TOLENTINO WAS ALERT AND FULLY ORIENTED ON ASSESSMENT. CIRCULATION AND SENSATION TO BLE'S INTACT. PT PAIN MODERATELY WELL MANAGED. DRESSINGS TO PIN SITES REMAINED C/D/I THIS SHIFT. PT DENIES SOB, CHEST PAIN, AND NAUSEA. PLAN FOR OUT PT SURGERY. NO ACUTE EVENTS OR CHANGES THIS SHIFT.
[2024-11-16 05:28] VITALS: BP 127/69
[2024-11-16 07:09] VITALS: BP 121/61
[2024-11-16 10:21] LABS: BASOPHILS ABSOLUTE AUTO 0.05 K/mm3 (0.00-0.23); BASOPHILS PERCENT AUTO 0 % (0-2); EOSINOPHILS ABSOLUTE AUTO 0.05 K/mm3 (0.00-0.68); EOSINOPHILS PERCENT AUTO 0 % (0-6); Hematocrit 25.1 % (33.0-51.0); Hemoglobin 8.5 g/dL (11.5-16.0); IMMATURE GRAN ABSOLUTE AUTO 0.05 K/mm3 (0.00-0.10); IMMATURE GRAN PERCENT AUTO 0 % (0-1); LYMPHOCYTES ABSOLUTE AUTO 1.19 K/mm3 (0.84-5.20); LYMPHOCYTES PERCENT AUTO 10 % (21-46); MONOCYTES ABSOLUTE AUTO 1.03 K/mm3 (0.16-1.47); MONOCYTES PERCENT AUTO 9 % (4-13); Mean Corpuscular HGB Conc 33.9 g/dL (31.5-36.5); Mean Corpuscular Volume 91 fL (80-100); NEUTROPHILS ABSOLUTE AUTO 9.32 K/mm3 (1.96-9.15); NEUTROPHILS PERCENT AUTO 80 % (41-73); NRBC ABSOLUTE 0.00 K/mm3 (0.00-0.02); NRBC Auto 0.0 /100 WBC (0.0-0.2); Platelet Count 295 K/mm3 (150-400); RDW Coefficient Variation 11.9 % (11.7-14.2); RDW Standard Deviation 39.3 fL (35.1-46.3)
[2024-11-16 10:38] LABS: Anion Gap 10.0 mmol/L (3-11); Blood Urea Nitrogen 7.0 mg/dL (8-24); CO2, Blood 29.0 mmol/L (21-32); Calcium, Blood 8.7 mg/dL (8.5-10.1); Chloride, Blood 97.0 mmol/L (98-108); Creatinine, Blood 0.49 mg/dL (0.40-1.00); Glucose, Blood 130.0 mg/dL (70-99); Potassium, Blood 3.8 mmol/L (3.5-5.5); Sodium, Blood 132.0 mmol/L (136-145)
[2024-11-16 14:45] VITALS: BP 127/68
--- NOTE | 2024-11-16 16:48 | NUR ---
SUMMARY NO ACUTE CHANGES THIS SHIFT. VSS. AXO4. DRESSING CHANGE COMPLETED AT BEGINNING OF SHIFT TO EXTERNAL FIXATION DEVICE - ASSESSED LEG WITH ESTABLISHMENT GUIDE WELL PHYSICIAN DUE TO PT STATING TIGHTNESS TO LEG. LEG SOFT TO TOUCH, TOES WARM, CAP REFILL <3 SEC TO EXTREMITY. BRUISING NOTED IN POSTOP AREAS - PICTURES PLACED IN CHART. PT REMAINS FLAT BUT INTERACTIVE. STILL AWAITING SNF APPROVAL WITH INSURANCE - CARE MANAGEMENT WORKING ON THIS, PT AWARE THIS MAY LAST OVER WEEKEND. PT HAD VISITORS TODAY. HAS BEEN PROPPING LEG UP WITH PILLOWS ANDREQUIRING PAIN MEDS. OTHERWISE, RESTING, WATCHING TV, AND COMPLETING OTHER ACTIVITIES IN BED. ATTEMPTED BM TODAY, UNSUCCESFUL, NEW ORDERS OBTAINED.
[2024-11-16 19:34] VITALS: BP 106/62
[2024-11-16] MEDS ORDERED: Polyethylene Glycol 3350 17 gm PO SCH (21:00)
--- NOTE | 2024-11-17 04:54 | NUR ---
SHIFT SUMMARY; PATIENT SLEPT IN LONG INTERVALS. MEDICATED AT HS FOR PAIN AND SLEEP. GIVEN BOWEL PREP MEDS, BUT NO BM OF THIS ENTRY.
[2024-11-17 05:24] VITALS: BP 119/68
[2024-11-17 07:07] VITALS: BP 128/64
[2024-11-17 15:11] VITALS: BP 116/60
--- NOTE | 2024-11-17 16:17 | NUR ---
SHIFT SUMMARY NO ACUTE EVENTS TODAY. PATIENT ALERT AND ORIENTED X4. COMMUNICATING NEEDS EFFECTIVELY. VSS. POD 5 EXTERNAL HARDWARE PLACEMENT TO RLE. DRESSING CHANGED TODAY PER ORDERS - REMAINS C/D/I. SKIN SURROUNDING FIXATION RODS INTACT W/O ULCERATIONS OR ABNORMAL DRAINAGE. PPP. CAP REFILL <3 SECONDS. ABLE TO WIGGLE TOES. MANAGING PAIN PER EMAR AND W/ REPOSITIONING. WORKED W/ PT TODAY. BED MOBILE. NWB RLE - 2P ASSIST IF AMBULATING OOB. PW IN PLACE - DRAINING YELLOW URINE TO SUCTION. TOLERATING PO INTAKE. CALL LIGHT IN REACH.
[2024-11-17 19:42] VITALS: BP 120/62
[2024-11-18 04:42] VITALS: BP 119/67
--- NOTE | 2024-11-18 06:40 | NUR ---
SHIFT SUMMARY NOC. PT POD 6 FOR EXTERNAL HARDWARE PLACEMENT OF RLE. PT'S DRESSING C/D/I. PT REPORTING SOME RELIEF WITH PAIN MEDICATIONS. PT WEARING ATTENDS WITH PUREWICK IN PLACE. PT VOIDING AND HAD A BM THIS SHIFT. PT MAKES NEEDS KNOWN, CALL LIGHT IN REACH.
[2024-11-18 07:12] VITALS: BP 126/68
[2024-11-18 07:14] VITALS: BP 126/68
[2024-11-18 14:21] VITALS: BP 122/65
--- NOTE | 2024-11-18 18:32 | NUR ---
SHIFT SUMMARY HAS DONE WELL TODAY. PAIN REASONABLY CONTROLLED. DRSG CHANGE COMPLETED & PIN SITES CLEANED. HOPEFUL TO GO TO SNF TOMORROW.
[2024-11-18 19:30] VITALS: BP 116/62
[2024-11-19 03:49] VITALS: BP 115/60
[2024-11-19 07:34] VITALS: BP 124/67
--- NOTE | 2024-11-19 07:40 | NUR ---
SHIFT SUMMARY NOC. PT POD 7 FOR EXTERNAL HARDWARE PLACEMENT OF RLE. DRESSING IS C/D/I. PT MEDICATED PER EMAR WITH SOME RELIEF OF SX. PT VOIDING VIA PUREWICK WITH ATTENDS. PT HAD A BM THIS SHIFT. PT MAKES NEEDS KNOWN, CALL LIGHT IN REACH.
--- NOTE | 2024-11-19 13:02 | NUR ---
DISCHARGE TO [facility] VIA GOURNEY. ALERT, ORIENTED, PLEASANT. BELONGINGS SENT. ATTEMPT TO CALL REPORT x 2.
== END 2024-11-19 13:00 | DRG 493 ==
LOC: ER 11:24 → SURS 14:03
PROVIDERS: Emergency Medicine; Internal Medicine; Orthopaedic Surgery Sports Medicine; ADMIT Student in an Organized Health Care Education/Training Program
PROC: 3E03329 Introduction of Other Anti-infective into Peripheral Vein, Percutaneous Approach (ICD-10-PCS; 2024-11-12)
PROC: 0QSG35Z Reposition Right Tibia with External Fixation Device, Percutaneous Approach (ICD-10-PCS; principal; 2024-11-12 17:00)
DX: S82.141A Displaced bicondylar fracture of right tibia, initial encounter for closed fracture (principal); E87.1 Hypo-osmolality and hyponatremia; I10 Essential (primary) hypertension; K21.9 Gastro-esophageal reflux disease without esophagitis; S82.451A Displaced comminuted fracture of shaft of right fibula, initial encounter for closed fracture; F17.210 Nicotine dependence, cigarettes, uncomplicated; D64.9 Anemia, unspecified; F41.9 Anxiety disorder, unspecified; F32.A Depression, unspecified; G47.00 Insomnia, unspecified; F10.20 Alcohol dependence, uncomplicated; Z90.89 Acquired absence of other organs; Z98.890 Other specified postprocedural states; Z79.890 Hormone replacement therapy; Z79.891 Long term (current) use of opiate analgesic; Z79.899 Other long term (current) drug therapy; W10.9XXA Fall (on) (from) unspecified stairs and steps, initial encounter
CPT/HCPCS: 36415; 73560-RT; 73590; 73700; 73706; 76377; 80048; 80053; 82607; 82728; 82746; 83540; 83550; 85014; 85018; 85025; 93005; 93010; 94760; 94762; 96374-59; 96375-59; 97110; 97162; 97530; 97530-CQ; 99285-25; A6590; A9270; C1713; J0690; J1171; J1650; J2270; J2405; J2704; J7030; J7050; J7120; Q9967